=== PATIENT | female | born 1985 | race American Indian/Alaskan Native ===

== ENCOUNTER 2019-02-28 19:52 | Emergency (ER) | payer MEDICAID ==
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
[2019-02-28] MEDS ORDERED: NORCO 10/325 PO ONE (20:53)
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
[2019-02-28] MEDS ORDERED: XYLOCAINE 1% MPF 5 mL ONE (23:30)
[2019-03-01] MEDS ORDERED: ZOFRAN IM ONE (01:02)
[2019-03-01] MEDS ORDERED: MORPHINE IM ONE (01:02)
[2019-03-01 01:56] VITALS: BP 145/91
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
== END 2019-03-01 02:18 | disposition home or self-care (01) ==
LOC: ED 19:52
DX: S02.32XA Fracture of orbital floor, left side, initial encounter for closed fracture (principal); S01.112A Laceration without foreign body of left eyelid and periocular area, initial encounter; S01.111A Laceration without foreign body of right eyelid and periocular area, initial encounter; S10.93XA Contusion of unspecified part of neck, initial encounter; I10 Essential (primary) hypertension; J45.909 Unspecified asthma, uncomplicated; Z98.890 Other specified postprocedural states; Z79.899 Other long term (current) drug therapy; Z88.1 Allergy status to other antibiotic agents; Z88.0 Allergy status to penicillin; Z88.8 Allergy status to other drugs, medicaments and biological substances; Y04.8XXA Assault by other bodily force, initial encounter; Y93.89 Activity, other specified; Y92.89 Other specified places as the place of occurrence of the external cause; Y99.8 Other external cause status
CPT/HCPCS: 12013; 70450; 70486; 74176; 96372; 99284; J2270; J2405